=== PATIENT | female | born 1960 | race Caucasian/White ===

== ENCOUNTER 2018-12-08 16:06 | Inpatient (IN) ==
--- OUTSIDE RECORDS SUMMARY | 2018-12-08 16:10 | External Medical Summary | Continuity of Care Document ---
:1960 Author Name Elvis Sommer, Provider Address Unavailable Unavailable , Care Team Providers Name Role Phone Unavailable Unavailable Unavailable Janna Sommer, Franklyn Unavailable [email or web address] JASSI SANTOS Unavailable Unavailable Unavailable Unavailable Unavailable Problems Hydronephrosis (591) (N13.30) Allergies and Adverse Reactions No Known Drug Allergies (Allergy) Medications Sulfamethoxazole-Trimethoprim 800-160 MG Oral Tablet; take 1 tab by mouth 2 times daily for 3 days. Kemal Saldivar Start: 06-Mar-2018 Quantity: 14 Franklyn Refills: 0 Procedures Procedures not documented Immunizations Immunizations not documented Plan of Treatment Planned Observations Planned Goals not documented Results No Known Results Results not documented Encounters Appointment; Franklyn Saldivar M.D. 27-Feb-2018 10:40 Encounter Diagnosis: Problem not documented
[2018-12-08] MEDS ORDERED: SODIUM CHLORIDE 0.9% 1000ML 2,000 ML IV SCH (16:30)
--- NOTE | 2018-12-08 16:52 | XRay Report ---
XR chest 1V portable CLINICAL HISTORY: weakness dyspnea COMPARISON STUDY: 03/02/2018 FINDINGS: Increased cardiac size. Increased prominence of pulmonary vasculature. Small fixed hiatal h ernia. IMPRESSION: Congestive heart failure. The above report was generated using voice recognition software. It may contain grammatical, syntax or spelling errors. Electronically signed by: Gómez Faria M.D. 12/08/2018 4:51 PM
[2018-12-08 17:10] LABS: Hematocrit (blood only) 24.7 % (37-47); Hemoglobin 8.3 g/dL (12.0-16.0); Mean Corpuscular Hgb Conc 33.6 g/dL (32-36); Mean Corpuscular Volume 88.2 fL (80-100); Mean Platelet Volume 10.6 fL (7.4-10.4); Nucleated RBC # (auto) 0.24 K/uL (0-0); Platelet Count 139 K/uL (130-400); RDW Coefficient of Variation 20.9 % (11.5-14.5); RDW Standard Deviation 63.5 fL (36.4-46.3); White Blood Count 7.92 K/uL (4.8-10.8)
[2018-12-08 17:39] LABS: Alanine Aminotransferase 77 U/L (12-78); Albumin Level 2.9 gm/dl (3.4-5.0); Aspartate Aminotransferase 198 U/L (15-37); BUN Creatinine Ratio 38.1 (10-20); Blood Urea Nitrogen 111 mg/dl (7-18); Calcium 8.7 mg/dl (8.5-10.1); Carbon Dioxide 17 mmol/L (21-32); Chloride 89 mmol/L (98-107); Est GFR (Non-African American) 17.2; Glucose 106 mg/dl (70-99); Sodium 124 mmol/L (136-145)
[2018-12-08 17:42] LABS: Eosinophils # (auto) 0.03 K/uL (0-0.5); Eosinophils % (auto) 0.4 %; Immature Granulocytes # (auto) 0.05 K/uL (0.00-0.02); Immature Granulocytes % (auto) 0.6 %; Lymphocytes # (auto) 1.24 K/uL (1.2-3.4); Lymphocytes % (auto) 15.7 %; Monocytes # (auto) 0.47 K/uL (0.11-0.59); Monocytes % (auto) 5.9 %; Neutrophils # (auto) 6.13 K/uL (1.4-6.5); Neutrophils % (auto) 77.4 %; Polychromasia 1+; Tear Drop Cells 1+
[2018-12-08 17:50] LABS: Albumin Globulin Ratio 0.7 (0.9-2); Alkaline Phosphatase 352 U/L (45-117); Bilirubin,Total 0.5 mg/dl (0.2-1); Globulin 4.2 gm/dl (2.5-4.0); Total Protein 7.1 gm/dl (6.4-8.2); Troponin I < 0.015 ng/ml (0-0.045)
[2018-12-08 18:02] LABS: T4 Free Thyroxine 0.71 ng/dl (0.8-1.6)
--- NOTE | 2018-12-08 18:17 | CT Scan Report ---
CT abd pelvis wo con CT DOSE: 261.39 mGy.cm HISTORY: Nausea. Vomiting. vomiting TECHNIQUE: Multiaxial CT images of the abdomen and pelvis were performed without contrast. A dose lo wering technique was utilized adhering to the principles of ALARA. COMPARISON STUDY: PET scan dated 01/16/2018 FINDINGS: Interval development of basilar pleural effusions. Bibasilar parenchymal infiltrative maldonado e more prominent at the left base. Widespread bony metastatic change. Interval development of widespread hepatic metastatic disease. Small amount of upper abdominal ascite s. Progressive bilateral hydronephrosis. Mild abdominal and pelvic ascites. The bowel pattern overall is nonobstructive. Poor visibility of the soft tissue structures of the pelvis old possibility of bulky adenopathy is co nsidered. Widespread. Progressive bony metastatic disease compared to the prior exam. IMPRESSION: 1. Rather significant progressive metastatic disease throughout the low chest abdomen and pelvis comp ared to the prior PET scan. 2. Progressive bilateral pleural effusions with underlying basilar parenchymal nodularity and left ba silar infiltrative change. 3. Diffuse liver metastatic change. 4. Interval development of a mild amount of abdominal and pelvic ascites. 6. Progressive bilateral hydroureteronephrosis. 7. Probable progressive adenopathy within the abdomen and pelvic regions. 8. Progressive diffuse bony metastatic change. The above report was generated using voice recognition software. It may contain grammatical, syntax or spelling errors. Electronically signed by: Gómez Faria M.D. 12/08/2018 6:15 PM
[2018-12-08 18:43] LABS: Bacteria Urine Automated 1+ (Negative); Bilirubin Urine Negative (Negative); Blood Urine Negative (Negative); Color Urine Yellow; Glucose Urine UA Negative (Negative); Ketones Urine Negative (Negative); Leukocyte Esterase Urine 3+ (Negative); Nitrite Urine Negative (Negative); Protein Urine Negative (Negative); RBC Urine Automated 0-4 /hpf (0-4); Specific Gravity Urine 1.015 (1.000-1.030); Urobilinogen Urine Negative (Negative); WBC Urine Automated >30 /hpf (0-5)
[2018-12-08 18:45] LABS: Appearance Urine Clear (Clear)
[2018-12-08 19:32] LABS: Base Excess VBG -11.7 mEq/L; HCO3 VBG 14 mmol/L; PCO2 VBG 32 mmHg (38-50); PO2 VBG 22 mmHg; pH VBG 7.26 (7.36-7.41)
[2018-12-08 19:45] LABS: Oxygen Saturation VBG < 60.0 %
[2018-12-08 20:34] LABS: Reticulocytes # 0.11 10^6/uL (0.02-0.10)
--- NOTE | 2018-12-08 20:51 | History & Physical Report ---
Date of Service December 08, 2018 Assessment & Plan (1) Hyponatremia: (2) Anemia: (3) Acute kidney injury: (4) Metastatic breast cancer: 58yoF diagnosed with breast cancer diagnosed in 2018 without further treatment presents with increasing weakness and inability to eat or drink for about 2 weeks prior to presentation. Metastatic Breast Cancer Diagnosed in 2018. Pt reports going to [place] but did not undergo immune therapy as recommended, decided to meditate instead -Ct abdomen: significant progressive metastatic disease low chest, abdomen and pelvis, progressive bilateral pleural effusion with basilar parenchymal nodularity and L basilar infiltrative change, progressive bony metastatic change, adenopathy within abdomen/pelvis, liver metastasis, mild abdominal/pelvic ascites, progressive bilateral hydroureteronephrosis -Ct head ordered, consider MRI brain with gadolinium once Cr improves -Oncology consulted: Dr. Barr to determine plan of care at this point Anion Gap Metabolic Acidosis like from starvation ketosis vs. lactic acidosis v s. uremia due to renal failure -Anion gap of 18 with bicarb of 17 -VBG ph 7.26, CO2 32, HCO3 14, O2 22 -Lactate elevated at 3 -Glucose 106 -On IVFs and Rocephin -Continue to monitor Hyponatremia likely secondary to hypovolemia vs. SIADH -Na 124 with normal glucose, pt significantly hypovolemic -Serum Osm 298 -Urine Osm and Urine Na pending -Received 2L NS bolus, on NS at 125cc/hr -Continue to monitor BMP ART with bilateral hydroureteronephrosis -BUN/Cr 111/2.9 (last recorded Cr of 1.4 in february 2018) -Pt not anuric/oliguric and reports urinating 3-4x/day, able to provide urine sample in the ED -bilateral hydroureteronephrosis on abdominal CT likely from mass effect given diffuse abdominal metastasis but pt appears to be retaining some as well -Bladder scanned for 379 in the ED 1 hr s/p void without sensation to urinate -Ohara ordered -On IVFs NS at 125cc/hr Possible UTI -UA positive -Started on Rocephin -UCx pending SOB likely in the setting of congestive changes on CXR vs. lung metastasis vs. anemia -CXR congestive heart failure, increased cardiac size and increased prominence of pulmonary vasculature -Ct abdomen: significant progressive metastatic disease low chest, progressive bilateral pleural effusion with basilar parenchymal nodularity and L basilar infiltrative change -On RA at this time -Supplemental O2 as needed -ECHO ordered -Continue to monitor Anemia likely secondary to bone marrow suppression in the setting of metastatic cancer -No concern for acute GI bleed at this time -HGb 8.3 (was 9.5 in february 2018), MCV 88 -Retic count ordered -Continue to monitor CBC Possible Hypothyroidism -TSH 5.9, free T4 -Consider Brain MRI as pt's Cr improves to assess for any metastasis involving pituitary gland DVT prop: SCD only Code: Full per discussion with pt and Dispo: PCU temetry (5) High anion gap metabolic acidosis: (6) Hydroureteronephrosis: History of Present Illness Chief Complaint: Weakness, difficulty eating or drinking Primary Care Provider: Juany Jernigan 58yoF diagnosed with breast cancer in 2018 without further treatment presents with increasing weakness and inability to eat or drink for about 2 weeks prior to presentation. She reports 2 weeks ago started vomiting water then 1 week ago she was vomiting food and getting weaker. She has not vomited for the past 4 days but is not able to eat or drink much. She also reports feeling wobbly. Per , last year she was having vision issues such as drooping L eye lid and could not keep her eye closed at night which was drying eyes following which she was diagnosed with breast cancer. Pt was seen at [facility] with recommendation to receive immune therapy. She reports deciding to "meditate" instead and that helped her feel better. Per , following diagnosis she had depression and could not concentrate at work and thus stopped working last year as well. She was otherwise independent and able to shop and leave the house until 3 weeks ago but lately has been getting short of breath even going to the bathroom. She also reports mild occasional abdominal pain, chills, swelling in feet Denies fever, headache, dizziness, cp, n/v at this time, hematuria, dysuria, has been urinating 3-4 times a day, bowels are less frequent but brown (non-bloody and not dark), falls, head trauma, unilateral weakness in arms or legs (feels wobbly and weak overall) Allergies Allergy/AdvReac Type Severity Reaction Status Date / Time banana Allergy Unknown MOOD CHANGE Verified 12/08/18 16:36 chocolate flavor Allergy Unknown NO Verified 12/08/18 16:36 NOTICABLE RX, WAS TESTED POSITVE FOR ALLERGY citric acid Allergy Unknown SWELLING Verified 12/08/18 16:36 Home Medications Home Medications Medication Instructions Recorded Confirmed Type No Known Home Medications 12/08/18 12/08/18 History Past Med/Surg History Medical History Anterior dislocation of left shoulder (Inactive) Social History Preferred Language: Egyptian Communication Ability: Effective Beliefs That Will Affect Care: Anabaptism Current Living Situation: Spouse Other Information That Helps Us Care for You: No Feels Safe at Home: Yes Safety Concerns: Feels Safe At This Time Smoking Status: Never smoker Hx Alcohol Use: Yes Hx Substance Use: No Review of Systems Review of Systems: As per HPI Physical Exam Physical Exam: General: In NAD, appears pale and weak, pleasant HEENT: L eyelid droopy (also mild facial assymetry at nasolabial folds and L eyebrow droopy), PERRL, moist mucous membranes, fruity smelling breath CV: RRR, no m/r/g, cap refill > 4 secs PULM: Diffuse rhonchi and bibasilar crackles, coarse but equal breath sounds bilaterally ABDOMEN: +BS, non-tender to palpation in all quadrants, enlarged liver, epigastric palpable mass/fullness Neuro: A&O x 4, CN 2-12 intact, bilateral upper and lower extremity strength 5/5, intact sensation bilateral upper and lower extremities Skin: indurated lumpy skin over R supraclavicular region (possible skin metastasis?) LE: no calf TTP, feet are edematous (non-pitting) Results & Data Vital Signs (Past 12 Hours) Vital Signs Pulse Pulse Resp BP BP Pulse Ox 12/08/18 20:00 100 H 18 124/78 94 12/08/18 19:29 102 H 17 117/81 94 12/08/18 18:20 98 12/08/18 18:00 101 H 18 109/70 98 12/08/18 16:09 108 H 20 95/68 L 99 Laboratory Results Abnormal lab results 12/08/18 12/08/18 12/08/18 Range/Units 17:00 17:00 17:00 RBC 2.80 L (4.2-5.4) M/uL Hgb 8.3 L (12.0-16.0) g/dL Hct 24.7 L (37-47) % RDW Std Deviation 63.5 H (36.4-46.3) fL RDW Coeff of Elizabeth 20.9 H (11.5-14.5) % MPV 10.6 H (7.4-10.4) fL Reticulocyte % (Auto) 4.0 H (0.5-2.0) % Immature Gran # (Auto) 0.05 H (0.00-0.02) K/uL Reticulocyte # 0.11 H (0.02-0.10) 10^6/uL Absolute Nucleated RBC 0.24 H (0-0) K/uL VBG pH (7.36-7.41) VBG pCO2 (38-50) mmHg Sodium 124 L (136-145) mmol/L Chloride 89 L (98-107) mmol/L Carbon Dioxide 17 L (21-32) mmol/L Anion Gap 18.0 H (3-11) BUN 111 H (7-18) mg/dl Creatinine 2.90 H (0.6-1.2) mg/dl BUN/Creatinine Ratio 38.1 H (10-20) Glucose 106 H (70-99) mg/dl AST 198 H (15-37) U/L Alkaline Phosphatase 352 H (45-117) U/L Albumin 2.9 L (3.4-5.0) gm/dl Globulin 4.2 H (2.5-4.0) gm/dl Albumin/Globulin Ratio 0.7 L (0.9-2) TSH 5.990 H (0.300-4.500) uIu/ml Free T4 0.71 L (0.8-1.6) ng/dl Ur Leukocyte Esterase (Negative) Urine WBC (Auto) (0-5) /hpf U Epithel Cells (Auto) (0-5) /lpf Urine Bacteria (Auto) (Negative) 12/08/18 12/08/18 Range/Units 18:22 18:30 RBC (4.2-5.4) M/uL Hgb (12.0-16.0) g/dL Hct (37-47) % RDW Std Deviation (36.4-46.3) fL RDW Coeff of Elizabeth (11.5-14.5) % MPV (7.4-10.4) fL Reticulocyte % (Auto) (0.5-2.0) % Immature Gran # (Auto) (0.00-0.02) K/uL Reticulocyte # (0.02-0.10) 10^6/uL Absolute Nucleated RBC (0-0) K/uL VBG pH 7.26 L (7.36-7.41) VBG pCO2 32 L (38-50) mmHg Sodium (136-145) mmol/L Chloride (98-107) mmol/L Carbon Dioxide (21-32) mmol/L Anion Gap (3-11) BUN (7-18) mg/dl Creatinine (0.6-1.2) mg/dl BUN/Creatinine Ratio (10-20) Glucose (70-99) mg/dl AST (15-37) U/L Alkaline Phosphatase (45-117) U/L Albumin (3.4-5.0) gm/dl Globulin (2.5-4.0) gm/dl Albumin/Globulin Ratio (0.9-2) TSH (0.300-4.500) uIu/ml Free T4 (0.8-1.6) ng/dl Ur Leukocyte Esterase 3+ H (Negative) Urine WBC (Auto) >30 H (0-5) /hpf U Epithel Cells (Auto) 5-10 H (0-5) /lpf Urine Bacteria (Auto) 1+ H (Negative) Diagnostic Findings CT abd pelvis wo con CT DOSE: 261.39 mGy.cm HISTORY: Nausea. Vomiting. vomiting TECHNIQUE: Multiaxial CT images of the abdomen and pelvis were performed without contrast. A dose lowering technique was utilized adhering to the principles of ALARA. COMPARISON STUDY: PET scan dated 01/16/2018 FINDINGS: Interval development of basilar pleural effusions. Bibasilar parenchymal infiltrative change more prominent at the left base. Widespread bony metastatic change. Interval development of widespread hepatic metastatic disease. Small amount of upper abdominal ascites. Progressive bilateral hydronephrosis. Mild abdominal and pelvic ascites. The bowel pattern overall is nonobstructive. Poor visibility of the soft tissue structures of the pelvis old possibility of bulky adenopathy is considered. Widespread. Progressive bony metastatic disease compared to the prior exam. IMPRESSION: 1. Rather significant progressive metastatic disease throughout the low chest abdomen and pelvis compared to the prior PET scan. 2. Progressive bilateral pleural effusions with underlying basilar parenchymal nodularity and left basilar infiltrative change. 3. Diffuse liver metastatic change. 4. Interval development of a mild amount of abdominal and pelvic ascites. 6. Progressive bilateral hydroureteronephrosis. 7. Probable progressive adenopathy within the abdomen and pelvic regions. 8. Progressive diffuse bony metastatic change. XR chest 1V portable CLINICAL HISTORY: weakness dyspnea COMPARISON STUDY: 03/02/2018 FINDINGS: Increased cardiac size. Increased prominence of pulmonary vasculature. Small fixed hiatal hernia. IMPRESSION: Congestive heart failure. Code Status & VTE Plan Code Status Full - per discussion with pt and Supervising Physician Co-Signing Physician Notes Pt seen/examined in conjunction with resident MD Jay Velasco. The pt was admitted briefly but transferred to [facility] following her CT head results. She has a large cerebellar lesion and was in danger of significant herniation. 58 y/o F Hx breast CA which has not been treated and is widely metastatic. Presented due to weakness and poor emerson. She had ptosis and seemed altered on admission so that we obtained a CT head. Initial exam: AAO x 3 - slow to respond Mass on R neck, + L ptosis S1,2 R CTAB NT, ND No CCE P: The pt was provided with 10mg of Dex following the CT results She was then transferred to [facility] per her own request Resident Activity Tracking Resident Involvement: Resident Care Provided Care Provided: Adult Hospital Medicine (1) Anemia Anemia type: unspecified type Qualified Code(s): D64.9 - Anemia, unspecified
--- NOTE | 2018-12-08 21:42 | Emergency Department Note ---
Entered by Abbi Sr acting as a scribe for Danilo Little DO History of Present Illness General Chief complaint: Weakness Stated complaint: WEAK NOT EATING OR DRINKNING Source: patient and family () History of Present Illness Provider complaint: dehydration Onset (ago): week(s) 1 Location: head Pain Consistency: + other (persistent) Associated symptoms: + cough, + nausea/vomiting (-nausea, +vomiting) and + other (+leg cramping, -vaginal bleeding, -rhinorrhea); no fever/chills Treatments prior to arrival: none The patient is a 58 year old female who presents to the Emergency Room with co mplaints of persistent dehydration that started a week ago. The patient states that she was experiencing 4 days of vomiting 4 days ago, but is now just experiencing indigestion and is unable to eat or drink more than a sip at a time. The patient states that she was coughing last night and experienced leg cramping, but denies any symptoms of a fever, vaginal bleeding, or rhinorrhea. She states that she has only been eating limited food and water. She notes that her last bowel movement was a few days ago and she is passing gas regularly. The patient states that she has a history of cancer, but is not currently on chemotherapy or radiation. She notes that her last radiation was in January. Per her , there is no one in her household that is currently sick. The patient states that she has not taken any medication prior to visit. Home Medications Home Medications Medication Instructions Recorded Confirmed Type No Known Home Medications 12/08/18 12/08/18 History Allergies Allergy/AdvReac Type Severity Reaction Status Date / Time banana Allergy Unknown MOOD CHANGE Verified 12/08/18 16:36 chocolate flavor Allergy Unknown NO Verified 12/08/18 16:36 NOTICABLE RX, WAS TESTED POSITVE FOR ALLERGY citric acid Allergy Unknown SWELLING Verified 12/08/18 16:36 Past Med/Surg History Medical History Anterior dislocation of left shoulder (Inactive) Social History Feels Safe at Home: Yes Smoking Status: Never smoker Review of Systems See HPI for pertinent positives & negatives. and A total of 10 systems reviewed and were otherwise negative Physical Exam Vital Signs Vital Signs - 24 hr 12/08/18 16:09 12/08/18 18:00 12/08/18 18:20 Temperature Source Oral Sepsis Recent Fever Within 48 Hours No Sepsis New/Unexplained Change in Mental Status No Sepsis Action Taken by Nursing No Action Required Pulse Rate 108 H Pulse Rate [Apical] 101 H Respiratory Rate 20 18 Respiratory Effort / Characteristics Respiratory Depth Respiratory Pattern Blood Pressure 95/68 L Blood Pressure [Left Arm] 109/70 Blood Pressure Mean 77 Blood Pressure Mean [Left Arm] 83 Pulse Oximetry 99 98 98 Oxygen Delivery Method Room Air Room Air Room Air 12/08/18 19:29 12/08/18 20:00 Temperature Source Sepsis Recent Fever Within 48 Hours Sepsis New/Unexplained Change in Mental Status Sepsis Action Taken by Nursing Pulse Rate Pulse Rate [Apical] 102 H 100 H Respiratory Rate 17 18 Respiratory Effort / Characteristics Non-Labored Respiratory Depth Normal Respiratory Pattern Regular Blood Pressure Blood Pressure [Left Arm] 117/81 124/78 Blood Pressure Mean Blood Pressure Mean [Left Arm] 93 93 Pulse Oximetry 94 94 Oxygen Delivery Method Room Air Room Air GENERAL: chronically ill, cachectic alert, malnourished, no distress, non-toxic EYE EXAM: normal conjunctiva, PERRL and EOM's grossly intact OROPHARYNX: no exudate, no erythema, lips, buccal mucosa, and tongue normal and mucous membranes are moist NECK: supple, no nuchal rigidity, no adenopathy, non-tender LUNGS: Clear to auscultation. Normal chest wall mechanics HEART: no murmurs, S1 normal and S2 normal ABDOMEN: abdomen soft, non-tender, normo-active bowel sounds, no masses, no rebound or guarding. BACK: Back is symmetrical on inspection and there is no deformity, no midline tenderness, no CVA tenderness. SKIN: no rashes and no bruising UPPER EXTREMITIES: upper extremities are grossly normal. LOWER EXTREMITIES: No pitting edema. NEURO EXAM: Normal sensorium, cranial nerves II-XII grossly intact, normal speech, no gross weakness of arms, no gross weakness of legs. Course ED COURSE: Vital signs were reviewed and showed hypertensive and tachycardic The patients medical record was reviewed The above diagnostic studies were performed and reviewed. ED treatments and interventions as stated above. 1614: The patient was evaluated in room A4B. A complete history and physical e xamination was performed. 1843: I discussed the patient's case with Dr. Cage, where she will be c onducting a further evaluation. 1910: Upon reevaluation, the patient is resting comfortably.I discussed my findings with the patient and she understands and agrees with the treatment plan. Based on the patients age, coexisting illnesses, exam and lab findings the decision to treat as an inpatient was made. The patient remained stable while under my care. The patient will be evaluated for further management. Reevaluation(s) Reevaluation #1: Dr. Cage Time: 18:43 Administered Medications Discontinued Medications Sodium Chloride (Nss 1000ml) 2,000 mls @ 999 mls/hr IV .Q2H1M CRAIG Stop: 12/08/18 18:30 Last Admin: 12/08/18 17:02 Dose: 999 mls/hr Documented by: [id number] Medical Decision Making Differential Diagnosis Differential diagnosis includes etiologies such as ectopic , dysfunction uterine bleeding, bleeding dyscrasia, trauma, infection, as well as others were entertained. Medical Records Attestation: I reviewed the patient's medical records. Home Medications Current Medication List: was personally reviewed by me Laboratory Data Attestation: I reviewed the patient's lab results. Result diagrams: 12/08/18 17:00 12/08/18 17:00 Lab Results 12/08/18 12/08/18 12/08/18 Range/Units 17:00 17:00 17:00 WBC 7.92 (4.8-10.8) K/uL RBC 2.80 L (4.2-5.4) M/uL Hgb 8.3 L (12.0-16.0) g/dL Hct 24.7 L (37-47) % MCV 88.2 (80-100) fL MCH 29.6 (25-34) pg MCHC 33.6 (32-36) g/dL RDW Std Deviation 63.5 H (36.4-46.3) fL RDW Coeff of Elizabeth 20.9 H (11.5-14.5) % Plt Count 139 (130-400) K/uL MPV 10.6 H (7.4-10.4) fL Immature Gran % (Auto) 0.6 % Neut % (Auto) 77.4 % Lymph % (Auto) 15.7 % Ector % (Auto) 5.9 % Eos % (Auto) 0.4 % Baso % (Auto) 0.0 % Reticulocyte % (Auto) 4.0 H (0.5-2.0) % Immature Gran # (Auto) 0.05 H (0.00-0.02) K/uL Neut # (Auto) 6.13 (1.4-6.5) K/uL Lymph # (Auto) 1.24 (1.2-3.4) K/uL Ector # (Auto) 0.47 (0.11-0.59) K/uL Eos # (Auto) 0.03 (0-0.5) K/uL Baso # (Auto) 0.00 (0-0.2) K/uL Reticulocyte # 0.11 H (0.02-0.10) 10^6/uL Absolute Nucleated RBC 0.24 H (0-0) K/uL Nucleated RBC % (auto) 3.0 % Polychromasia 1+ Tear Drop Cells 1+ VBG pH (7.36-7.41) VBG pCO2 (38-50) mmHg VBG pO2 mmHg VBG HCO3 mmol/L VBG O2 Saturation % VBG Base Excess mEq/L Barometric Pressure mm/Hg Sodium 124 L (136-145) mmol/L Potassium 4.0 (3.5-5.1) mmol/L Chloride 89 L (98-107) mmol/L Carbon Dioxide 17 L (21-32) mmol/L Anion Gap 18.0 H (3-11) BUN 111 H (7-18) mg/dl Creatinine 2.90 H (0.6-1.2) mg/dl Est Cr Clr Drug Dosing Not Reportable Est GFR ( Amer) 20.0 Est GFR (Non-Af Amer) 17.2 BUN/Creatinine Ratio 38.1 H (10-20) Glucose 106 H (70-99) mg/dl Osmolality (280-300) mOsm/kg Lactate (0.4-2.0) mmol/L Calcium 8.7 (8.5-10.1) mg/dl Total Bilirubin 0.5 (0.2-1) mg/dl AST 198 H (15-37) U/L ALT 77 (12-78) U/L Alkaline Phosphatase 352 H (45-117) U/L Troponin I < 0.015 (0-0.045) ng/ml Total Protein 7.1 (6.4-8.2) gm/dl Albumin 2.9 L (3.4-5.0) gm/dl Globulin 4.2 H (2.5-4.0) gm/dl Albumin/Globulin Ratio 0.7 L (0.9-2) TSH 5.990 H (0.300-4.500) uIu/ml Free T4 0.71 L (0.8-1.6) ng/dl Urine Color Urine Appearance (Clear) Urine pH (4.5-7.5) Ur Specific [place] (1.000-1.030) Urine Protein (Negative) Urine Glucose (UA) (Negative) Urine Ketones (Negative) Urine Blood (Negative) Urine Nitrite (Negative) Urine Bilirubin (Negative) Urine Urobilinogen (Negative) Ur Leukocyte Esterase (Negative) Urine WBC (Auto) (0-5) /hpf Urine RBC (Auto) (0-4) /hpf U Hyaline Cast (Auto) (0-5) /lpf U Epithel Cells (Auto) (0-5) /lpf Urine Bacteria (Auto) (Negative) 12/08/18 12/08/18 12/08/18 Range/Units 18:22 18:30 20:35 WBC (4.8-10.8) K/uL RBC (4.2-5.4) M/uL Hgb (12.0-16.0) g/dL Hct (37-47) % MCV (80-100) fL MCH (25-34) pg MCHC (32-36) g/dL RDW Std Deviation (36.4-46.3) fL RDW Coeff of Elizabeth (11.5-14.5) % Plt Count (130-400) K/uL MPV (7.4-10.4) fL Immature Gran % (Auto) % Neut % (Auto) % Lymph % (Auto) % Ector % (Auto) % Eos % (Auto) % Baso % (Auto) % Reticulocyte % (Auto) (0.5-2.0) % Immature Gran # (Auto) (0.00-0.02) K/uL Neut # (Auto) (1.4-6.5) K/uL Lymph # (Auto) (1.2-3.4) K/uL Ector # (Auto) (0.11-0.59) K/uL Eos # (Auto) (0-0.5) K/uL Baso # (Auto) (0-0.2) K/uL Reticulocyte # (0.02-0.10) 10^6/uL Absolute Nucleated RBC (0-0) K/uL Nucleated RBC % (auto) % Polychromasia Tear Drop Cells VBG pH 7.26 L (7.36-7.41) VBG pCO2 32 L (38-50) mmHg VBG pO2 22 mmHg VBG HCO3 14 mmol/L VBG O2 Saturation < 60.0 % VBG Base Excess -11.7 mEq/L Barometric Pressure 734.4 mm/Hg Sodium (136-145) mmol/L Potassium (3.5-5.1) mmol/L Chloride (98-107) mmol/L Carbon Dioxide (21-32) mmol/L Anion Gap (3-11) BUN (7-18) mg/dl Creatinine (0.6-1.2) mg/dl Est Cr Clr Drug Dosing Est GFR ( Amer) Est GFR (Non-Af Amer) BUN/Creatinine Ratio (10-20) Glucose (70-99) mg/dl Osmolality (280-300) mOsm/kg Lactate 3.0 H* (0.4-2.0) mmol/L Calcium (8.5-10.1) mg/dl Total Bilirubin (0.2-1) mg/dl AST (15-37) U/L ALT (12-78) U/L Alkaline Phosphatase (45-117) U/L Troponin I (0-0.045) ng/ml Total Protein (6.4-8.2) gm/dl Albumin (3.4-5.0) gm/dl Globulin (2.5-4.0) gm/dl Albumin/Globulin Ratio (0.9-2) TSH (0.300-4.500) uIu/ml Free T4 (0.8-1.6) ng/dl Urine Color Yellow Urine Appearance Clear (Clear) Urine pH 5.0 (4.5-7.5) Ur Specific [place] 1.015 (1.000-1.030) Urine Protein Negative (Negative) Urine Glucose (UA) Negative (Negative) Urine Ketones Negative (Negative) Urine Blood Negative (Negative) Urine Nitrite Negative (Negative) Urine Bilirubin Negative (Negative) Urine Urobilinogen Negative (Negative) Ur Leukocyte Esterase 3+ H (Negative) Urine WBC (Auto) >30 H (0-5) /hpf Urine RBC (Auto) 0-4 (0-4) /hpf U Hyaline Cast (Auto) 1-5 (0-5) /lpf U Epithel Cells (Auto) 5-10 H (0-5) /lpf Urine Bacteria (Auto) 1+ H (Negative) 12/08/18 Range/Units 20:35 WBC (4.8-10.8) K/uL RBC (4.2-5.4) M/uL Hgb (12.0-16.0) g/dL Hct (37-47) % MCV (80-100) fL MCH (25-34) pg MCHC (32-36) g/dL RDW Std Deviation (36.4-46.3) fL RDW Coeff of Elizabeth (11.5-14.5) % Plt Count (130-400) K/uL MPV (7.4-10.4) fL Immature Gran % (Auto) % Neut % (Auto) % Lymph % (Auto) % Ector % (Auto) % Eos % (Auto) % Baso % (Auto) % Reticulocyte % (Auto) (0.5-2.0) % Immature Gran # (Auto) (0.00-0.02) K/uL Neut # (Auto) (1.4-6.5) K/uL Lymph # (Auto) (1.2-3.4) K/uL Ector # (Auto) (0.11-0.59) K/uL Eos # (Auto) (0-0.5) K/uL Baso # (Auto) (0-0.2) K/uL Reticulocyte # (0.02-0.10) 10^6/uL Absolute Nucleated RBC (0-0) K/uL Nucleated RBC % (auto) % Polychromasia Tear Drop Cells VBG pH (7.36-7.41) VBG pCO2 (38-50) mmHg VBG pO2 mmHg VBG HCO3 mmol/L VBG O2 Saturation % VBG Base Excess mEq/L Barometric Pressure mm/Hg Sodium (136-145) mmol/L Potassium (3.5-5.1) mmol/L Chloride (98-107) mmol/L Carbon Dioxide (21-32) mmol/L Anion Gap (3-11) BUN (7-18) mg/dl Creatinine (0.6-1.2) mg/dl Est Cr Clr Drug Dosing Est GFR ( Amer) Est GFR (Non-Af Amer) BUN/Creatinine Ratio (10-20) Glucose (70-99) mg/dl Osmolality 298 (280-300) mOsm/kg Lactate (0.4-2.0) mmol/L Calcium (8.5-10.1) mg/dl Total Bilirubin (0.2-1) mg/dl AST (15-37) U/L ALT (12-78) U/L Alkaline Phosphatase (45-117) U/L Troponin I (0-0.045) ng/ml Total Protein (6.4-8.2) gm/dl Albumin (3.4-5.0) gm/dl Globulin (2.5-4.0) gm/dl Albumin/Globulin Ratio (0.9-2) TSH (0.300-4.500) uIu/ml Free T4 (0.8-1.6) ng/dl Urine Color Urine Appearance (Clear) Urine pH (4.5-7.5) Ur Specific [place] (1.000-1.030) Urine Protein (Negative) Urine Glucose (UA) (Negative) Urine Ketones (Negative) Urine Blood (Negative) Urine Nitrite (Negative) Urine Bilirubin (Negative) Urine Urobilinogen (Negative) Ur Leukocyte Esterase (Negative) Urine WBC (Auto) (0-5) /hpf Urine RBC (Auto) (0-4) /hpf U Hyaline Cast (Auto) (0-5) /lpf U Epithel Cells (Auto) (0-5) /lpf Urine Bacteria (Auto) (Negative) Imaging Data Radiologist's Impression: Radiology results as stated below per my review and the radiologist's interpretation: XR chest 1V portable CLINICAL HISTORY: weakness dyspnea COMPARISON STUDY: 03/02/2018 FINDINGS: Increased cardiac size. Increased prominence of pulmonary vasculature. Small fixed hiatal hernia. IMPRESSION: Congestive heart failure. The above report was generated using voice recognition software. It may contain grammatical, syntax or spelling errors. Electronically signed by: Gómez Faria M.D. 12/08/2018 4:[address] abd pelvis wo con CT DOSE: 261.39 mGy.cm HISTORY: Nausea. Vomiting. vomiting TECHNIQUE: Multiaxial CT images of the abdomen and pelvis were performed without contrast. A dose lowering technique was utilized adhering to the principles of ALARA. COMPARISON STUDY: PET scan dated 01/16/2018 FINDINGS: Interval development of basilar pleural effusions. Bibasilar parenchymal infiltrative change more prominent at the left base. Widespread bony metastatic change. Interval development of widespread hepatic metastatic disease. Small amount of upper abdominal ascites. Progressive bilateral hydronephrosis. Mild abdominal and pelvic ascites. The bowel pattern overall is nonobstructive. Poor visibility of the soft tissue structures of the pelvis old possibility of bulky adenopathy is considered. Widespread. Progressive bony metastatic disease compared to the prior exam. IMPRESSION: 1. Rather significant progressive metastatic disease throughout the low chest abdomen and pelvis compared to the prior PET scan. 2. Progressive bilateral pleural effusions with underlying basilar parenchymal nodularity and left basilar infiltrative change. 3. Diffuse liver metastatic change. 4. Interval development of a mild amount of abdominal and pelvic ascites. 6. Progressive bilateral hydroureteronephrosis. 7. Probable progressive adenopathy within the abdomen and pelvic regions. 8. Progressive diffuse bony metastatic change. The above report was generated using voice recognition software. It may contain grammatical, syntax or spelling errors. Electronically signed by: Gómez Faria M.D. 12/08/2018 6:15 PM ECG Data Attestation: I personally reviewed and interpreted this ECG as follows: Indication: weakness Rate (beats per minute): 105 Rhythm: sinus tachycardia Findings: + T-wave inversion (Septal and lateral); no PVC MDM Narrative Patient is a 58-year-old female who presents the ER for 8 days ago with vomiting. This stopped about 4 days ago now she has been unable to really eat or drink with a sip at a time. Upon presentation blood work was obtained and shows a worsening anemia at 8.3 down from 9. No significant leukocytosis. VBG with a pH of 7.26. CO2 was slightly low at 32. Sodium is low at 124 with a CO2 of 17 and a small gap. Creatinine more than doubled at 2.9 off of a baseline of 1.3. UA eventually resulted following admission and would suggest a UTI. I did not cover with antibiotics as this resulted after she was admitted upstairs. Patient was given IV fluids while in the ER. CT abdomen pelvis shows ascites with metastatic disease and bilateral pleural effusions. Patient was monitored closely while in the ER. She notes that she does not drink alcohol. I do favor this is secondary to her cancer. She was updated bedside. She was admitted to the hospitalist for further work-up of her hyponatremia, metabolic acidosis and acute kidney injury. Impression & Plan Hyponatremia, Anemia, Acute kidney injury Discharge Plan Visit Data Chief Complaint: Weakness Stated Complaint: WEAK NOT EATING OR DRINKNING ED Provider: Danilo Little Discharge Problem: Hyponatremia, Anemia, Acute kidney injury Patient Disposition: Being Evaluated by Hospitalist Discharge Instructions Interventions: ED Discharge Assessment Last Done: 12/08/18 21:28 Discharge Problem: Anemia Qualifiers: Anemia type: unspecified type Qualified Code(s): D64.9 - Anemia, unspecified The scribe's documentation has been prepared under my direction and personally reviewed by me in its entirety. I confirm that the note above accurately reflects all work, treatment, procedures, and medical decision making performed by me.
[2018-12-08] MEDS ORDERED: ACETAMINOPHEN 325 MG TAB PO PRN (21:56)
[2018-12-08] MEDS ORDERED: SODIUM CHLORIDE 0.9% 1000ML 1,000 ML IV SCH (21:56)
[2018-12-08] MEDS ORDERED: POLYETHYLENE (MIRALAX) 17 GM PACK PO PRN (21:56)
[2018-12-08] MEDS ORDERED: ONDANSETRON INJ 2 MG/ML 2 ML VIAL IV PRN (21:56)
--- NOTE | 2018-12-08 22:33 | CT Scan Report ---
HEAD CT NONCONTRAST CT DOSE: 537.48 mGy.cm HISTORY: metastatic breast cancer, drooping L eyelid TECHNIQUE: Multiaxial CT images of the head were performed without the use of intravenous contrast. A utomated exposure control was utilized for this study. A dose lowering technique was utilized adheri ng to the principles of ALARA. Comparison: Brain MRI 01/16/2018. Findings: The paranasal sinuses and mastoid air cells are clear. Patchy sclerosis seen throughout the calvarium and skull base consistent with diffuse osteoblastic metastatic disease. There is a 3 cm ma ss within the right cerebellar hemisphere with surrounding vasogenic edema. This results in mass effe ct with approximately 50% effacement of the fourth ventricle. There is also vasogenic edema extending into the left cerebellar hemisphere. There may be mild cerebellar tonsillar herniation with slight m ass effect along the brainstem. No hydrocephalus at this time. There is question of soft tissue thick ening partially surrounding the optic nerves. Impression: 1. A 3 cm mass within the right cerebellar hemisphere with associated vasogenic edema. This is consis tent with metastatic disease. This results in approximate 50% effacement of fourth ventricle as well as mild cerebellar tonsillar herniation and slight mass effect on the brainstem. Therefore, immediate surgical consultation recommended. 2. Diffuse osteoblastic metastatic disease. 3. Question of soft tissue thickening partially surrounding the optic nerves. This raises the possibi lity of metastatic disease. 4. These findings were discussed with Dr. Velasco at 10:35 PM on 12/08/2018. Electronically signed by: Mamadou Gomes M.D. 12/08/2018 11:24 PM
[2018-12-08 23:21] VITALS: PULSE 108; TEMP 97.7; O2SAT 96
[2018-12-08] MEDS ORDERED: dexAMETHasone 10 MG in SYRINGE 0 ML IV STA (23:50)
[2018-12-09 00:36] VITALS: BP 106/77
[2018-12-09] MEDS ORDERED: cefTRIAXone SODIUM 1,000 MG in DEXTROSE 5% 50 ML IV SCH (09:00)
--- NOTE | 2019-01-08 07:00 | Discharge Summary ---
Date of Service January 08, 2019 Admission HPI Per Admitting Provider 58yoF diagnosed with breast cancer in 2018 without further treatment presents with increasing weakness and inability to eat or drink for about 2 weeks prior to presentation. She reports 2 weeks ago started vomiting water then 1 week ago she was vomiting food and getting weaker. She has not vomited for the past 4 days but is not able to eat or drink much. She also reports feeling wobbly. Per , last year she was having vision issues such as drooping L eye lid and could not keep her eye closed at night which was drying eyes following which she was diagnosed with breast cancer. Pt was seen at [facility] with recommendation to receive immune therapy. She reports deciding to "meditate" instead and that helped her feel better. Per , following diagnosis she had depression and could not concentrate at work and thus stopped working last year as well. She was otherwise independent and able to shop and leave the house until 3 weeks ago but lately has been getting short of breath even going to the bathroom. She also reports mild occasional abdominal pain, chills, swelling in feet Denies fever, headache, dizziness, cp, n/v at this time, hematuria, dysuria, has been urinating 3-4 times a day, bowels are less frequent but brown (non-bloody and not dark), falls, head trauma, unilateral weakness in arms or legs (feels wobbly and weak overall) Principal Diagnosis Breast cancer with brain mets Discharge Exam This pt was not technically admitted as she was assessed by the medical team in the ER, proceeded for an MRI of the brain and was found to have metastasis causing her neurological deficits. She was transferred to [facility] therefore. He exam was unchanged from admission Discharge Data Allergies Allergy/AdvReac Type Severity Reaction Status Date / Time banana Allergy Unknown MOOD CHANGE Verified 12/25/18 15:35 chocolate flavor Allergy Unknown NO Verified 12/25/18 15:35 NOTICABLE RX, WAS TESTED POSITVE FOR ALLERGY citric acid Allergy Unknown SWELLING Verified 12/25/18 15:35 Consultations 12/08/18 18:29 ED Decision to Admit Stat 12/08/18 21:56 Consult Oncology Routine Ordered Studies 12/08/18 16:27 CT abd pelvis wo con Stat 12/08/18 21:56 CT head/brain wo con Stat Total Time Total Time Spent Total Time Spent (In Minutes): 10 Discharge Plan Discharge Items Patient Disposition: Transfer Acute Care Hospital Reason For Visit: METASTATIC BREAST CANCER, WEAKNESS/DIFFICULTY Discharge Diagnosis: metastatic breast cancer R cerebellar 3cm mass with vasogenic edema and cerebellar tonsillar herniation Discharge Goals: Decrease discomfort, Diagnostic testing and Therapeutic intervention Activity: Resume your previous activity Non-emergency contact: Primary Care Provider Call non-emergency contact if: you have any medication questions and your symptoms worsen Follow-up/Referrals: Juany Jernigan [Primary Care Provider] - Diet: Regular Addtl Provider Instructions: As discussed Prescriptions: No Action dexamethasone 4 mg tablet 4 mg PO Q6H RF: 0 letrozole 2.5 mg tablet 2.5 mg PO DAILY RF: 0 famotidine 20 mg tablet 20 mg PO DAILY RF: 0 Stand-Alone Forms: [facility] Discharge Orders: Discharge Order (Routine); Ordered 12/09/18 Ordered By: Ruddy Velasco Admission Data Admit Date/Time: 12/08/18 20:41 Attending Provider: Carl Borden Admit Provider: Carl Borden Primary Care Provider: Juany Jernigan Service: Telemetry Other Interventions: Discharge Summary Assessment (RN) Last Done: 12/09/18 00:31 DC Date/Time DO NOT enter until pt leaves facility: 12/09/18 01:38
== END 2018-12-09 01:38 | disposition short-term general hospital (02) | DRG 598 ==
LOC: ED 16:06 → 2S 20:41